=== PATIENT | male | born 1945 | race Caucasian/White ===

== ENCOUNTER 2019-10-08 11:41 | Emergency (ER) | payer OTHER ==
[~2019-10-08] VITALS: Ht 172.7 cm; Wt 77.1 kg
[2019-10-08 12:37] LABS: BASOPHILS ABSOLUTE AUTO 0.03 K/mm3 (0.00-0.23); BASOPHILS PERCENT AUTO 0 % (0-2); EOSINOPHILS ABSOLUTE AUTO 0.16 K/mm3 (0.00-0.68); EOSINOPHILS PERCENT AUTO 2 % (0-6); Hematocrit 41.3 % (37.0-53.0); Hemoglobin 13.3 g/dL (13.5-17.5); IMMATURE GRAN ABSOLUTE AUTO 0.02 K/mm3 (0.00-0.10); IMMATURE GRAN PERCENT AUTO 0 % (0-1); LYMPHOCYTES ABSOLUTE AUTO 0.76 K/mm3 (0.84-5.20); LYMPHOCYTES PERCENT AUTO 9 % (21-46); MONOCYTES ABSOLUTE AUTO 0.66 K/mm3 (0.16-1.47); MONOCYTES PERCENT AUTO 8 % (4-13); Mean Corpuscular HGB 32.4 pg (26.0-34.0); Mean Corpuscular HGB Conc 32.2 g/dL (31.5-36.5); Mean Corpuscular Volume 101 fL (80-100); Mean Platelet Volume 9.7 fL (9.1-12.4); NEUTROPHILS ABSOLUTE AUTO 6.93 K/mm3 (1.96-9.15); NEUTROPHILS PERCENT AUTO 81 % (41-73); Platelet Count 217 K/mm3 (150-400); RDW Coefficient Variation 14.4 % (11.7-14.2); RDW Standard Deviation 53.8 fL (35.1-46.3); White Blood Cell Count 8.56 K/mm3 (4.00-11.30)
[2019-10-08 12:55] LABS: Alanine Aminotransfer (ALT/SGP 48 U/L (12-78); Albumin, Blood 2.7 g/dL (3.4-5.0); Albumin/Globulin Ratio 0.6 (0.8-1.8); Alk Phos 136 U/L (50-136); Anion Gap 8 mmol/L (6-16); Aspartate Aminotrans (AST/SGOT 32 U/L (12-37); Bilirubin, Total 0.4 mg/dL (0.1-1.0); Blood Urea Nitrogen 27 mg/dL (8-24); Bun/Creatinine Ratio 25.5 (12.0-20.0); CO2, Blood 20 mmol/L (21-32); Calcium, Blood 8.9 mg/dL (8.5-10.1); Chloride, Blood 112 mmol/L (98-108); Creatinine, Blood 1.06 mg/dL (0.60-1.20); Globulin, Blood 4.7 g/dL (2.2-4.0); Glomerular Filtration Rate >60 (60-); Glucose, Blood 101 mg/dL (70-99); Potassium, Blood 4.3 mmol/L (3.5-5.5); Sodium, Blood 140 mmol/L (136-145); Total Protein, Blood 7.4 g/dL (6.4-8.2)
[2019-10-08] MEDS ORDERED: Flomax0.4 MG PO (15:18)
[2019-10-08] MEDS ORDERED: FINA5 PO (15:18)
[2019-10-08] MEDS ORDERED: OMEP20ER PO (15:18)
[2019-10-08] MEDS ORDERED: ASPI81CH PO (15:19)
[2019-10-08] MEDS ORDERED: ASCO500 PO (15:21)
[2019-10-08] MEDS ORDERED: Vitamin D2000 UNIT PO (15:21)
[2019-10-08] MEDS ORDERED: KEFLEX500 MG PO (16:02)
[2019-10-08] MEDS ORDERED: Bactrim Ds Tab1 EACH PO (16:02)
== END 2019-10-08 16:16 | disposition home or self-care (01) ==
LOC: ER 11:41
PROVIDERS: Emergency Medicine
DX: M70.51 Other bursitis of knee, right knee (principal); L03.115 Cellulitis of right lower limb; Z88.0 Allergy status to penicillin; Z79.82 Long term (current) use of aspirin; Z79.899 Other long term (current) drug therapy
CPT/HCPCS: 20610; 80053; 85025; 96365-59; 99283-25; J0696

== ENCOUNTER 2019-10-17 16:51 | Emergency (ER) | payer OTHER ==
[~2019-10-17] VITALS: Ht 172.7 cm; Wt 70.3 kg
[~2019-10-17 16:51] MED LIST: ASCO500 PO; Aspir 8181 MG PO; Bactrim Ds Tab1 EACH PO; FINA5 PO; Flomax0.4 MG PO; KEFLEX500 MG PO; OMEP20ER PO; Vitamin D2000 UNIT PO
[2019-10-17 18:16] LABS: BASOPHILS ABSOLUTE AUTO 0.05 K/mm3 (0.00-0.23); BASOPHILS PERCENT AUTO 1 % (0-2); EOSINOPHILS ABSOLUTE AUTO 0.19 K/mm3 (0.00-0.68); EOSINOPHILS PERCENT AUTO 3 % (0-6); Hematocrit 40.9 % (37.0-53.0); Hemoglobin 12.9 g/dL (13.5-17.5); IMMATURE GRAN ABSOLUTE AUTO 0.03 K/mm3 (0.00-0.10); IMMATURE GRAN PERCENT AUTO 0 % (0-1); LYMPHOCYTES ABSOLUTE AUTO 1.59 K/mm3 (0.84-5.20); LYMPHOCYTES PERCENT AUTO 22 % (21-46); MONOCYTES ABSOLUTE AUTO 0.54 K/mm3 (0.16-1.47); MONOCYTES PERCENT AUTO 7 % (4-13); Mean Corpuscular HGB 31.5 pg (26.0-34.0); Mean Corpuscular HGB Conc 31.5 g/dL (31.5-36.5); Mean Corpuscular Volume 100 fL (80-100); Mean Platelet Volume 9.1 fL (9.1-12.4); NEUTROPHILS ABSOLUTE AUTO 4.88 K/mm3 (1.96-9.15); NEUTROPHILS PERCENT AUTO 67 % (41-73); Platelet Count 481 K/mm3 (150-400); RDW Coefficient Variation 13.6 % (11.7-14.2); RDW Standard Deviation 50.8 fL (35.1-46.3); White Blood Cell Count 7.28 K/mm3 (4.00-11.30)
[2019-10-17] MEDS ORDERED: FISH OIL 1,2001 EAC7 PO (18:50)
[2019-10-17 19:03] LABS: Albumin, Blood 3.1 g/dL (3.4-5.0); Albumin/Globulin Ratio 0.6 (0.8-1.8); Bilirubin, Total 0.2 mg/dL (0.1-1.0); Bun/Creatinine Ratio 16.9 (12.0-20.0); Calcium, Blood 8.7 mg/dL (8.5-10.1); Creatinine, Blood 1.66 mg/dL (0.60-1.20); Globulin, Blood 4.8 g/dL (2.2-4.0); Magnesium, Blood 2.9 mg/dL (1.6-2.4); Potassium, Blood 4.9 mmol/L (3.5-5.5); Total Protein, Blood 7.9 g/dL (6.4-8.2)
[2019-10-17] MEDS ORDERED: SYMBICORT 160-4.6 GM INH (19:11)
[2019-10-17] MEDS ORDERED: LIDO5TO TOP (19:11)
[2019-10-17] MEDS ORDERED: SPIRIVA RESPIMAT4 G3 INH (19:12)
[2019-10-17] MEDS ORDERED: ALBU90OI INH (19:12)
[2019-10-17] MEDS ORDERED: Roxicodone5 MG PO (19:42)
== END 2019-10-17 20:24 | disposition home or self-care (01) ==
LOC: ER 16:51
PROVIDERS: Emergency Medicine
DX: L03.115 Cellulitis of right lower limb (principal); J43.9 Emphysema, unspecified; Z88.0 Allergy status to penicillin; Z79.82 Long term (current) use of aspirin; Z87.891 Personal history of nicotine dependence; Z79.899 Other long term (current) drug therapy
CPT/HCPCS: 20610; 36415; 80053; 83605; 83735; 85025; 93005; 93010; 96365-59; 96366-59; 96375-59; 99284-25; J0696; J3370; J7030; J7050